=== PATIENT | male | born 1945 ===

== ENCOUNTER 2023-08-09 06:00 | Outpatient (RCR) | payer MEDICARE, OTHER, SELFPAY | END 2023-08-27 23:59 | disposition home or self-care (01) | LOC: SPT 06:00 | PROVIDERS: Visit Provider Urology | DX: N40.1 Benign prostatic hyperplasia with lower urinary tract symptoms (principal); R39.16 Straining to void | CPT/HCPCS: 97110; 97161; 97530 ==

== ENCOUNTER 2023-08-28 06:00 | Outpatient (RCR) | payer MEDICARE, OTHER, SELFPAY | END 2023-09-20 23:59 | disposition home or self-care (01) | LOC: SPT 06:00 | PROVIDERS: Visit Provider Urology | DX: N40.1 Benign prostatic hyperplasia with lower urinary tract symptoms (principal) | CPT/HCPCS: 97530 ==